=== PATIENT | male | born 1965 | race Two or more races ===

== ENCOUNTER 2023-12-01 12:40 | Emergency (ER) | payer OTHER ==
[~2023-12-01] VITALS: Ht 188 cm; Wt 79.0 kg
[2023-12-01 13:44] LABS: Basophils # (auto) 0 10 ^3/uL (0-0.2); Eosinophils # (auto) 0.1 10 ^3/uL (0-0.8); Lymphocytes # (auto) 1.7 10 ^3/uL (0.4-5.4); Monocytes # (auto) 0.6 10 ^3/uL (0-1.3); Neutrophils # (auto) 3.7 10 ^3/uL (1.6-8.6); Nucleated Red Blood Cells % 0.1 %; White Blood Cell 6.1 10^3/uL (4.4-10.8)
[2023-12-01 13:45] LABS: Basophils % (auto) 0.2 % (0.0-2.0); Eosinophils % (auto) 1.1 % (0.0-7.0); Hematocrit 45.8 % (41.0-53.0); Hemoglobin 16.4 g/dL (13.5-17.5); Lymphocytes % (auto) 28.4 % (10.0-50.0); Mean Corpuscular Hemoglobin 35.6 pg (28.0-32.0); Mean Corpuscular Hgb Conc. 35.9 g/dL (32.0-36.0); Mean Corpuscular Volume 99.1 fL (80.0-100.0); Monocytes % (auto) 9.6 % (0.0-12.0); Neutrophils % (auto) 60.7 % (37.0-80.0); Red Blood Cells 4.62 10^6/uL (4.5-5.90); Red Cell Distribution Width 13.6 % (11.8-14.3)
[2023-12-01] MEDS: MECLIZINE HCL 25 MG TAB PO ONE (13:53)
[2023-12-01] MEDS: SODIUM CHLORIDE 0.9% 2,000 ML IV ONE (13:53)
[2023-12-01 13:59] LABS: INR 1.05 (0.9-1.15); Partial Thromboplastin Time 24.7 SEC (24.5-34.5); Prothrombin Time 11.1 sec (9.3-11.8)
[2023-12-01 14:01] LABS: Alanine Aminotransferase 29 U/L (7-40); Albumin 4.4 g/dL (3.2-4.8); Alkaline Phosphatase 67 U/L (46-116); Anion Gap 6 (5-15); Aspartate Aminotransferase 26 U/L (13-40); BUN/Creatinine Ratio 10.1 (10.0-20.0); Bilirubin, Total 0.9 mg/dL (0.2-1.0); Blood Urea Nitrogen 11 mg/dL (9-23); Calcium 9.8 mg/dL (8.7-10.4); Carbon Dioxide 26 mmol/L (20-30); Chloride 103 mmol/L (98-107); Glucose 229 mg/dL (74-106); Magnesium 2.1 mg/dL (1.6-2.6); Potassium 4.4 mmol/L (3.5-5.1); Sodium 135 mmol/L (136-145); Total Protein 7.6 g/dL (5.7-8.2)
[2023-12-01 14:29] LABS: LDL Cholesterol 77 mg/dL (< 100); Triglycerides 120 mg/dL (< 150)
[2023-12-01 14:31] LABS: Cholesterol 163 mg/dL (< 200); HDL Cholesterol 62 mg/dL (40-59)
[2023-12-01 14:38] VITALS: BP 105/62
[2023-12-01 14:39] VITALS: PULSE 80; RESP 15; O2SAT 98
[2023-12-01] MEDS ORDERED: MECL12.586 PO (15:42)
== END 2023-12-01 16:06 | disposition home or self-care (01) ==
LOC: ER 12:55
DX: R42 Dizziness and giddiness (principal); E86.0 Dehydration; E11.9 Type 2 diabetes mellitus without complications
CPT/HCPCS: 36415; 70450; 71045; 80053; 80061; 82962; 83036; 83735; 83880; 84484; 85025; 85610; 85730; 93005; 96360; 96361; 99285; J7030; J8597

== ENCOUNTER 2024-01-26 22:26 | Inpatient (IN) | payer MEDICAID, OTHER ==
[~2024-01-26] VITALS: Ht 188 cm; Wt 79.8 kg
[~2024-01-26 22:26] MED LIST: MECL12.586 PO
[2024-01-27 01:13] LABS: Basophils # (auto) 0 10 ^3/uL (0-0.2); Eosinophils # (auto) 0.2 10 ^3/uL (0-0.8); Monocytes # (auto) 0.7 10 ^3/uL (0-1.3); Neutrophils # (auto) 4.4 10 ^3/uL (1.6-8.6); White Blood Cell 7.4 10^3/uL (4.4-10.8)
[2024-01-27 01:15] LABS: Basophils % (auto) 0.5 % (0.0-2.0); Eosinophils % (auto) 2.4 % (0.0-7.0); Hematocrit 40.3 % (41.0-53.0); Hemoglobin 14.4 g/dL (13.5-17.5); Lymphocytes % (auto) 27.4 % (10.0-50.0); Mean Corpuscular Hemoglobin 35.7 pg (28.0-32.0); Mean Corpuscular Hgb Conc. 35.6 g/dL (32.0-36.0); Mean Corpuscular Volume 100.1 fL (80.0-100.0); Monocytes % (auto) 9.5 % (0.0-12.0); Neutrophils % (auto) 60.2 % (37.0-80.0); Nucleated Red Blood Cells % 0.2 %; Platelet Count (auto) 225 10^3/uL (140-450); Red Blood Cells 4.03 10^6/uL (4.5-5.90); Red Cell Distribution Width 13.2 % (11.8-14.3)
[2024-01-27 01:29] LABS: Alanine Aminotransferase 18 U/L (7-40); Albumin 4.5 g/dL (3.2-4.8); Alkaline Phosphatase 55 U/L (46-116); Anion Gap 6 (5-15); Aspartate Aminotransferase 22 U/L (13-40); BUN/Creatinine Ratio 10.3 (10.0-20.0); Bilirubin, Total 0.9 mg/dL (0.2-1.0); Blood Urea Nitrogen 12 mg/dL (9-23); Calcium 9.9 mg/dL (8.7-10.4); Carbon Dioxide 27 mmol/L (20-31); Chloride 104 mmol/L (98-107); Glucose 87 mg/dL (74-106); Sodium 137 mmol/L (136-145); Total Protein 7.7 g/dL (5.7-8.2)
[2024-01-27] MEDS: HYDROcodone-ACET 5/325MG TAB PO ONE (01:31)
[2024-01-27] MEDS: KETOROLAC TROMETH 30 MG/ML 1ML VIAL IV ONE (06:30)
[2024-01-27 08:13] VITALS: PULSE 71; RESP 18; O2SAT 98
[2024-01-27] MEDS ORDERED: NITROGLYCERIN 0.4 MG SL TAB SL PRN (11:15)
[2024-01-27] MEDS ORDERED: DEXTROSE (50%) 50ML SYRG IV PRN (11:15)
[2024-01-27] MEDS ORDERED: DOCUSATE SOD 100 MG CAP PO PRN (11:15)
[2024-01-27] MEDS: ACCU-CHEK COMFORT CURVE STRIP VI SCH (12:16)
[2024-01-27] MEDS: InsuLIN REG 1unit/0.01ml Soln (100units/ml) SC SCH (12:16)
[2024-01-27] MEDS: SODIUM CHLORIDE 0.9% 1,000 ML IV SCH (12:19)
[2024-01-27] MEDS: GABAPENTIN 100 MG CAP PO ONE (12:19)
[2024-01-27 12:48] LABS: Erythrocyte Sedimentation Rate 8 mm/hr (0-20)
[2024-01-27] MEDS: GABAPENTIN 100 MG CAP PO SCH (14:53)
[2024-01-27] MEDS: ONDANSETRON HCL 4 MG/2 ML VIAL IV PRN (18:37)
[2024-01-27] MEDS: MORPHINE SULFATE INJ 2 MG/ml SYRG IV PRN (18:38)
[2024-01-27 20:21] LABS: Urine Bacteria None Seen /hpf (None Seen)
[2024-01-27 20:38] LABS: Urine Blood Negative /uL (Negative); Urine Clarity Clear (Clear); Urine Color Dark-Yellow (Yellow); Urine Mucus FEW (None Seen); Urine Protein, UAD Negative (Negative); Urine Specific Gravity 1.032 (1.001-1.035); Urine Urobilinogen Normal (Negative); Urine WBC 2 /hpf (0 - 3); Urine pH 5.5 (5.0-9.0)
[2024-01-27 21:12] VITALS: PULSE 92; RESP 16; O2SAT 99
[2024-01-28] VITALS (7 sets, daily range): BP systolic 87–134; BP diastolic 46–69; PULSE 67–88; RESP 16–84; TEMP 97.7–98.7; O2SAT 93–98
[2024-01-28] MEDS ORDERED: DULO1CAP5 PO (03:25)
[2024-01-28] MEDS ORDERED: GABA-1250 PO (03:25)
[2024-01-28] MEDS ORDERED: DULA3INJ SC (03:25)
[2024-01-28] MEDS ORDERED: METF-372 PO (03:25)
[2024-01-28] MEDS ORDERED: EMPA1TAB PO (03:25)
[2024-01-28] MEDS ORDERED: HYDR-3682 PO (03:25)
[2024-01-28] MEDS ORDERED: GLIP10TA9 PO (03:25)
[2024-01-28] MEDS ORDERED: INSU1INJ19 SC (03:25)
[2024-01-28] MEDS ORDERED: TRAZ-184 PO (03:25)
[2024-01-28 07:08] LABS: Alanine Aminotransferase 15 U/L (7-40); Albumin 3.9 g/dL (3.2-4.8); Alkaline Phosphatase 55 U/L (46-116); Anion Gap 5 (5-15); Aspartate Aminotransferase 18 U/L (13-40); BUN/Creatinine Ratio 11.7 (10.0-20.0); Bilirubin, Total 0.6 mg/dL (0.2-1.0); Blood Urea Nitrogen 11 mg/dL (9-23); Calcium 8.9 mg/dL (8.7-10.4); Carbon Dioxide 27 mmol/L (20-31); Chloride 106 mmol/L (98-107); Glucose 106 mg/dL (74-106); Potassium 4.4 mmol/L (3.5-5.1); Sodium 138 mmol/L (136-145); Total Protein 6.5 g/dL (5.7-8.2)
[2024-01-28 08:06] LABS: RPR Non Reactive (Non Reactive)
[2024-01-28 08:11] LABS: Basophils # (auto) 0 10 ^3/uL (0-0.2); Basophils % (auto) 0.5 % (0.0-2.0); Eosinophils # (auto) 0.1 10 ^3/uL (0-0.8); Eosinophils % (auto) 1.7 % (0.0-7.0); Hematocrit 40.9 % (41.0-53.0); Hemoglobin 14.6 g/dL (13.5-17.5); Lymphocytes # (auto) 1.4 10 ^3/uL (0.4-5.4); Lymphocytes % (auto) 18.9 % (10.0-50.0); Mean Corpuscular Hemoglobin 35.5 pg (28.0-32.0); Mean Corpuscular Hgb Conc. 35.6 g/dL (32.0-36.0); Mean Corpuscular Volume 99.7 fL (80.0-100.0); Monocytes # (auto) 0.5 10 ^3/uL (0-1.3); Neutrophils # (auto) 5.2 10 ^3/uL (1.6-8.6); Neutrophils % (auto) 71.9 % (37.0-80.0); Nucleated Red Blood Cells % 0.1 %; Platelet Count (auto) 188 10^3/uL (140-450); Red Cell Distribution Width 12.9 % (11.8-14.3); White Blood Cell 7.2 10^3/uL (4.4-10.8)
[2024-01-28] MEDS: ENOXAPARIN SOD 40 MG/0.4 ML SYRINGE SC SCH (10:20)
[2024-01-29 01:00] VITALS: BP 123/60; PULSE 77; RESP 18; TEMP 98.9; O2SAT 97
[2024-01-29 05:00] VITALS: BP 134/68; PULSE 79; RESP 18; TEMP 98; O2SAT 98
[2024-01-29 09:00] VITALS: BP 120/58; PULSE 79; RESP 18; TEMP 97.4; O2SAT 98
[2024-01-29] MEDS: SODIUM CHLORIDE 0.9% 500 ML IV ONE (11:46)
[2024-01-29 13:00] VITALS: BP 124/70; PULSE 77; RESP 18; TEMP 97.5; O2SAT 97
[2024-01-29 13:18] VITALS: TEMP 36.3
== END 2024-01-29 13:53 | disposition home or self-care (01) | DRG 204 ==
LOC: ER 22:26 → OVERFLOW 01-27 11:20 → EAST 01-28 03:00
PROVIDERS: ADMIT Nurse Practitioner Family; ATTEND Nurse Practitioner Acute Care
DX: I95.1 Orthostatic hypotension (principal); G90.89 Other disorders of autonomic nervous system; E11.9 Type 2 diabetes mellitus without complications; K62.89 Other specified diseases of anus and rectum; I10 Essential (primary) hypertension; Z79.4 Long term (current) use of insulin; Z79.899 Other long term (current) drug therapy
CPT/HCPCS: 36415; 70450; 70551; 71045; 74176; 80053; 81001; 82962; 84484; 85025; 85652; 86038; 86592; 93306; 93886; G0378; J1815; J1885; J2405